=== PATIENT | female | born 1970 | race African-American/Black ===

== ENCOUNTER 2024-11-29 13:12 | Inpatient (IN) | payer MEDICAID, OTHER ==
[2024-11-29] MEDS ORDERED: MAGNESIUM HYDROXIDE 2,400 MG/30 ML CUP PO PRN (14:04)
[2024-11-29] MEDS ORDERED: HALOPERIDOL LACTATE 5 MG/ML 1 ML VIAL IM PRN (14:04)
[2024-11-29] MEDS ORDERED: ACETAMINOPHEN TAB 325 MG TAB PO PRN (14:04)
[2024-11-29] MEDS ORDERED: haloperidoL 5 MG TAB PO PRN (14:04)
[2024-11-29] MEDS ORDERED: LORazepam 2 MG/ML INJ IM PRN (14:10)
[2024-11-29 16:51] LABS: Glucose,Whole Blood 375 mg/dL (70-110)
[2024-11-29] MEDS ORDERED: DEXTROSE 50% SYRINGE 50 ML IVP PRN ×2 (17:02)
[2024-11-29 17:43] LABS: Glucose,Whole Blood 364 mg/dL (70-110)
[2024-11-29] MEDS: INSULIN LISPRO (HumaLOG) 100 UNIT/ML 10 mL VL SQ SCH (17:46)
[2024-11-29 20:02] LABS: Glucose,Whole Blood 362 mg/dL (70-110)
[2024-11-29] MEDS: PREGABALIN 100 MG CAP PO SCH (20:55)
[2024-11-29] MEDS: INSULIN GLARGINE (LANTUS) 100 UNIT/ML SYR SQ SCH (20:55)
[2024-11-29] MEDS: LORazepam 1 MG TAB PO PRN (20:57)
[2024-11-29 21:04] LABS: Glucose,Whole Blood 408 mg/dL (70-110)
[2024-11-29] MEDS: IBUPROFEN 600 MG TAB PO PRN (21:59)
--- NOTE | 2024-11-29 22:43 | XR ---
EXAMINATION TYPE: XR lumbar spine 2 or 3V DATE OF EXAM: 11/29/2024 9:56 PM COMPARISON: None. CLINICAL INDICATION: Female, 54 years old with history of pain after fall, pain TECHNIQUE: 3 view(s) obtained. FINDINGS: There are 5 lumbar-type vertebral bodies. Pedicles are intact. Disc heights are preserved. Vertebral body heights are preserved. IMPRESSION: 1. No acute osseous abnormality lumbar spine [facility], , 11/29/2024 10:41 PM
--- NOTE | 2024-11-29 22:43 | XR ---
EXAMINATION TYPE: XR Hip Complete LT DATE OF EXAM: 11/29/2024 9:56 PM COMPARISON: None. CLINICAL INDICATION: Female, 54 years old with history of fall, pain TECHNIQUE: 2 view(s) obtained. FINDINGS: Left femoral head articulates with the acetabulum. Joint space is preserved. No acute fracture or dis location. Symphysis pubis portion of the sacroiliac joint within the [id number] is normal. Follow up exams can be performed 7-10 days from acute trauma for continued pain IMPRESSION: 1. No acute osseous abnormality left hip [facility], , 11/29/2024 10:40 PM
--- NOTE | 2024-11-29 22:51 | XR ---
EXAMINATION TYPE: XR knee complete RT DATE OF EXAM: 11/29/2024 9:56 PM COMPARISON: None. CLINICAL INDICATION: Female, 54 years old with history of pain after fall, pain TECHNIQUE: 3 view(s) obtained. FINDINGS: No acute fracture or dislocation evident. No joint effusion is evident. Joint spaces are preserved. Follow up exams can be performed 7-10 days from acute trauma for continued pain IMPRESSION: 1. No acute osseous abnormality right knee [facility], , 11/29/2024 10:49 PM
[2024-11-30 07:56] LABS: Glucose,Whole Blood 180 mg/dL (70-110)
[2024-11-30 08:20] LABS: Basophils # (A) 0.04 10*3/uL (0.00-0.10); Basophils % (A) 0.7 %; Eosinophils # (A) 0.17 10*3/uL (0.04-0.35); Eosinophils % (A) 2.9 %; HCT 36.7 % (37.2-46.3); HGB 12.7 g/dL (12.0-15.0); Lymphocytes # (A) 2.94 10*3/uL (0.90-5.00); Lymphocytes % (A) 50.4 %; MCH 28.3 pg (27.0-32.0); MCHC 34.6 g/dL (32.0-37.0); MCV 81.9 fL (80.0-97.0); Mean Platelet Volume 10.8 fL (9.5-12.2); Monocytes # (A) 0.29 10*3/uL (0.20-1.00); Neutrophils # (A) 2.37 10*3/uL (1.80-7.70); Neutrophils % (A) 40.7 %; Platelet Count 306 10*3/uL (140-440); RBC 4.48 10*6/uL (4.10-5.20); RDW 11.9 % (11.5-14.5); WBC 5.83 10*3/uL (4.50-10.00)
[2024-11-30 08:53] LABS: ALT 19 U/L (4-34); AST 34 U/L (14-36); African American GFR (CKD) 70 (>60 ml/min/1.73 sqM); Albumin 3.5 g/dL (3.5-5.0); Alkaline Phosphatase 85 U/L (38-126); Anion Gap 7 mmol/L; Bilirubin,Unconjugated 0.5 mg/dL (0.0-1.1); Blood Urea Nitrogen 14 mg/dL (7-17); Calcium 9.7 mg/dL (8.4-10.2); Carbon Dioxide 27 mmol/L (22-30); Chloride 105 mmol/L (98-107); Glucose 192 mg/dL (74-99); Non-African American GFR(CKD) 61 (>60 ml/min/1.73 sqM); Potassium 3.8 mmol/L (3.5-5.1); Sodium 139 mmol/L (137-145); Total Bilirubin 0.5 mg/dL (0.2-1.3); Total Protein 6.4 g/dL (6.3-8.2)
[2024-11-30] MEDS: PANTOPRAZOLE 40 MG TABLET PO SCH (09:27)
[2024-11-30] MEDS: DULoxetine HCL 20 MG CAPSULE.DR PO SCH (09:28)
[2024-11-30] MEDS: NICOTINE 14MG/24HR PATCH TRANSDERM SCH (09:28)
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
[2024-11-30] MEDS: buPROPion XL 150 MG TAB.ER.24H PO SCH (09:35)
[2024-11-30 12:50] LABS: Glucose,Whole Blood 364 mg/dL (70-110)
[2024-11-30 14:35] VITALS: BMI 26.3
[2024-11-30 15:24] LABS: Chol/HDL Ratio 4.25 Ratio; LDL Cholesterol,Calculated 112.3 mg/dL (0.0-131.0)
[2024-11-30 17:46] LABS: Glucose,Whole Blood 436 mg/dL (70-110)
[2024-11-30] MEDS: QUEtiapine 25 MG TAB PO SCH (20:01)
[2024-11-30 20:11] LABS: Glucose,Whole Blood 503 mg/dL (70-110)
[2024-11-30] MEDS: INSULIN GLARGINE (LANTUS) 100 UNIT/ML SYR SQ SCH (21:17)
[2024-12-01] MEDS: MAG HYDROX/AL HYDROX/SIMETH 355 ML BOTTLE PO PRN (03:04)
[2024-12-01 08:22] LABS: Glucose,Whole Blood 250 mg/dL (70-110)
[2024-12-01] MEDS: PREGABALIN 100 MG CAP PO SCH (09:03)
--- NOTE | 2024-12-01 11:26 | P.PN ---
Progress Note - Text Progress Note Date: 12/01/24 Chief complaint: "I do not want to live" Interval History: Patient was seen wandering the hallways and was directable and agreeable to speak with process description writer in the office. The patient denies any side effects with the newly started medication including the Wellbutrin and Seroquel. She notes that her depression and anxiety are at 8/10 with 10 being worst (previous depression 6/10 anxiety 7/10). She notes that her grief remains 10/10. She continues to have periodic thoughts of . She denies any specific suicidal thoughts, plans or intent. She notes that after taking the Seroquel last night she did not have the ruminating thoughts or voices. She notes that she attended group and spoke of her grief. She notes that she slept well but, feels that her energy is waxing and waning. She notes an improvement in her concentration. She describes her appetite is normal. Mental Status Exam: General Appearance: The patient was normally dressed and groomed. She was using a walker in order to support herself. Behavior: Patient is calmly seated without any agitated behavior. Speech: Patient's speech is fluent and nonpressured. Mood/Affect: Mood is improving dysphoric and grieving, affect is congruent and constricted. Suicidality/Homicidality: Patient denies having any homicidal ideation intent or plan. The patient was voicing thoughts of . Perceptions: Patient denies any visual hallucinations and denies any auditory hallucinations Though content/process: There is no evidence of any delusional thought content and thought process is linear and goal-directed. Memory and concentration: AOX3, grossly intact for the purposes of this session Judgment and insight: Improving mildly Diagnoses: Grief Major depressive disorder recurrent moderate Generalized anxiety disorder History of PTSD Borderline personality traits Assessment: It appears that there is no side effects to the newly started medications in fact the patient slept well. However, she is still voicing thoughts of and her depression as well as her anxiety has increased. It warrants further hospitalization to ensure the medications are more effective. Additionally the patient would benefit from grief counseling upon discharge. PLAN: -Patient is admitted under involuntary status to MHU for stabilization of psychiatric symptoms and safety. Patient has signed adult voluntary form and medication consent and is placed in patient's chart. -Medications : Start Wellbutrin XL 150 mg take 1 capsule by mouth once daily for anhedonia, energy, depression Seroquel 25 mg take 1 tablet by mouth at bedtime for insomnia/anxiety -Ativan and Haldol PRN for agitation/aggression -Patient was informed of the risks, benefits and side effects of the medication and patient verbally consented to taking the medications. Patient signed med consent form and was placed in chart. -Internal Medicine consult to perform medical evaluation and physical. -NRT -not needed as patient does not smoke -SW on board for discharge planning. Encourage patient to participate in groups to work on coping skills.
[2024-12-01 13:02] LABS: Glucose,Whole Blood 307 mg/dL (70-110)
[2024-12-01 17:38] LABS: Glucose,Whole Blood 445 mg/dL (70-110)
[2024-12-01] MEDS: oxyCODONE-APAP 10-325MG 1 EACH TAB PO PRN (17:43)
[2024-12-01 20:04] LABS: Glucose,Whole Blood 370 mg/dL (70-110)
[2024-12-01] MEDS: INSULIN GLARGINE (LANTUS) 100 UNIT/ML SYR SQ SCH (20:13)
[2024-12-02] MEDS: MELATONIN 3 MG TABLET PO PRN (00:08)
[2024-12-02 08:02] LABS: Glucose,Whole Blood 327 mg/dL (70-110)
--- NOTE | 2024-12-02 11:29 | P.PN ---
Progress Note - Text Progress Note Date: 12/02/24 Chief complaint: Thoughts of hurting herself Interval History: Patient was seen wandering the hallways and was directable and agreeable to speak with parts data writer in the office. The patient notes that she feels reluctant about returning home if she feels that she might harm herself. She notes that it would be better to be discharged on Saturday because she is being with family and her sons remembrance services on Saturday. She does have appointment set up with mental health on Saturday [facility]. She notes that she did not sleep last night but does not know why she does note improvements with her energy. She continues to have a normal appetite. She states that her concentration remains poor. She rates her depression at 8/10 and anxiety 9/10 with 10 being worst. The patient denies any side effects with medication. Mental Status Exam: General Appearance: Patient appears to be stated age is alert, directable, and cooperative. Behavior: Patient looked withdrawn Speech: Patient's speech is fluent and nonpressured. Mood/Affect: Mood was severely depressed and the patient presented with blunted affect Suicidality/Homicidality: The patient notes that she is having thoughts of and thoughts of hurting herself if she is by herself. She denies any homicidal thoughts. Perceptions: Patient denies any visual hallucinations [and denies any auditory hallucinations] Though content/process: [There is no evidence of any delusional thought content and thought process is linear and goal-directed.] Memory and concentration: AOX3, grossly intact for the purposes of this session Judgment and insight: Improving mildly Diagnoses: Grief Major depressive disorder recurrent moderate Generalized anxiety disorder History of PTSD Borderline personality traits Assessment: The patient notes that if she returns home by herself there is a likelihood that she would harm herself. It is currently felt that continued hospitalization is needed at this point to prevent self-harm or worse suicide. It is felt that discharge to family would be a safer plan due to helping her process her grief which is the major precipitant of her thoughts of and depression. Continue hospitalization at this time. PLAN: -Patient is admitted under involuntary status to MHU for stabilization of p sychiatric symptoms and safety. Patient has signed adult voluntary form and medication consent and is placed in patient's chart. -Medications : Continue Wellbutrin XL 150 mg take 1 capsule by mouth once daily for anhedonia, energy, depression Seroquel 25 mg take 1 tablet by mouth at bedtime for insomnia/anxiety -Ativan and Haldol PRN for agitation/aggression -Patient was informed of the risks, benefits and side effects of the medication and patient verbally consented to taking the medications. Patient signed med consent form and was placed in chart. -Internal Medicine consult to perform medical evaluation and physical. -NRT -not needed as patient does not smoke -SW on board for discharge planning. Encourage patient to participate in groups to work on coping skills.
[2024-12-02 12:43] LABS: Glucose,Whole Blood 305 mg/dL (70-110)
[2024-12-02] MEDS: LORazepam 1 MG TAB PO PRN (13:49)
--- NOTE | 2024-12-02 16:25 | XR ---
EXAMINATION TYPE: XR Hip Complete LT DATE OF EXAM: 12/02/2024 3:57 PM COMPARISON: 11/29/2024 CLINICAL INDICATION: Female, 54 years old with history of Pt felt/heard popping and is in pain; PHH, pain TECHNIQUE: XR Hip Complete LT; Frontal and lateral views FINDINGS: No evidence for acute process, joint dislocation or significant soft tissue swelling. Osteo phyte formation of the superior acetabulum of the hip. There is mild joint space narrowing. IMPRESSION: 1. No evidence for acute process. 2. Mild hip osteoarthrosis. [facility], , 12/02/2024 4:22 PM
[2024-12-02 17:58] LABS: Glucose,Whole Blood 257 mg/dL (70-110)
[2024-12-02 20:26] LABS: Glucose,Whole Blood 331 mg/dL (70-110)
[2024-12-02] MEDS: cloNIDine HCL 0.2 MG TAB PO STA (22:45)
[2024-12-03] MEDS ORDERED: DEXTROSE 50% SYRINGE 50 ML IVP PRN ×2 (07:47)
--- NOTE | 2024-12-03 07:52 | P.MDCNMH ---
History of Present Illness H&P Date: 12/02/24 54-year-old female with diabetes Patient presented with depressed mood after the passing of her son Patient currently complains of left hip pain, she is unable to perform her ADLs at home after the passing of her son. Currently her blood sugar is not well-controlled receiving basal insulin and sl iding scale The patient currently denies any medical concerns , denies any fever, chills, cough, sore throat, chest pain , trouble breathing , nausea , vomiting, abd pain , changes in urinary or bowel habits. Patient denies any tobacco smoking and illicit drugs or alcohol review of systems Pertinent positives as noted in HPI. All other systems were reviewed and are negative on exam Constitutional: No acute distress Eyes: Anicteric sclerae, moist conjunctiva, Pupils equal round reactive to light Lungs: Clear to auscultation Clear to percussion Normal respiratory effort, no accessory muscle use Cardiovascular: Heart regular in rate and rhythm, No murmurs, gallops, or rubs No peripheral edema Abdominal: Soft Nontender, no guarding, rebound or rigidity Abdomen moving with respiration Normoactive bowel sounds Extremities: No clubbing Pedal pulses intact and symmetrical Radial pulses intact and symmetrical No calf tenderness Psychiatric: Alert and oriented to person, place and time Neuro Muscles Strength 5/5 in bilateral upper extremities, 4 out of 5 in bilateral lower extremities with limitations due to pain, no point tenderness over the spine Sensation to light touch grossly present throughout, peripheral neuropathy which is chronic Past Medical History Past Medical History: Diabetes Mellitus, Hypertension History of Any Multi-Drug Resistant Organisms: None Reported Past Surgical History: Breast Surgery, Section Past Anesthesia/Blood Transfusion Reactions: No Reported Reaction Smoking Status: Never smoker Medications and Allergies Home Medications Medication Instructions Recorded Confirmed Type Cholecalciferol (Vitamin D3) 1,250 mcg PO WEEKLY 11/30/24 11/30/24 History [Vitamin D3 (1250 Mcg = 50,000 Iu)] DULoxetine HCL [Cymbalta] 60 mg PO BID 11/30/24 11/30/24 History Dulaglutide [Trulicity] 0.75 mg SQ WEEKLY 11/30/24 11/30/24 History INSULIN LISPRO (HumaLOG) [humaLOG] 0 units SQ ACHS 11/30/24 11/30/24 History Ibuprofen [Motrin] 800 mg PO BID PRN 11/30/24 11/30/24 History Insulin Glargine (Lantus) [Lantus See Protocol SQ HS 11/30/24 11/30/24 History Vial] Omeprazole [PriLOSEC] 20 mg PO DAILY 11/30/24 11/30/24 History Pregabalin 300 mg PO BID 11/30/24 11/30/24 History oxyCODONE HCL/ACETAMINOPHEN 1 tab PO TID 11/30/24 11/30/24 History [Percocet 10-325 mg] Allergies Allergy/AdvReac Type Severity Reaction Status Date / Time cefazolin Allergy Itching Verified 11/30/24 10:23 shellfish derived [Shellfish] Allergy Unknown Verified 11/30/24 10:23 Physical Exam Vitals: Vital Signs Temp Pulse Resp BP Pulse Ox 12/02/24 22:00 184/108 12/02/24 20:30 97.4 F L 105 H 18 162/82 99 12/02/24 09:57 97.6 F 101 H 18 109/50 98 Cranial Nerve Examination - Cranial Nerves Cranial Nerve II- Optic: Intact Cranial Nerve III- Oculomotor: Intact Cranial Nerve IV- Trochlear: Intact Cranial Nerve V- Trigeminal: Intact Cranial Nerve - Abducens: Intact Cranial Nerve VII- Facial: Intact Cranial Nerve VIII- Auditory: Intact Cranial Nerve IX- Glossopharyngeal: Intact Cranial Nerve X- Vagus: Intact Cranial Nerve XI- Accessory: Intact Cranial Nerve XII- Hypoglossal: Intact Results CBC & Chem 7: 11/30/24 07:49 11/30/24 07:49 Labs: Abnormal Lab Results - Last 24 Hours (Table) 12/02/24 12/02/24 12/02/24 Range/Units 08:00 12:41 17:51 POC Glucose (mg/dL) 327 H 305 H 257 H (70-110) mg/dL 12/02/24 Range/Units 20:24 POC Glucose (mg/dL) 331 H (70-110) mg/dL Assessment and Plan Assessment: Diabetes mellitus uncontrolled with hyperglycemia Check A1c Continue with Levemir 40 units nightly Continue with insulin sliding scale Add preprandial lispro 8 units 3 times a day Continue to monitor blood sugar and make adjustments as needed Left hip pain X-ray showed left hip osteoarthritis no acute fractures Continue with pain control Fall precautions Thank you for this consultation
[2024-12-03 07:57] LABS: Glucose,Whole Blood 340 mg/dL (70-110)
[2024-12-03 12:53] LABS: Glucose,Whole Blood 218 mg/dL (70-110)
[2024-12-03] MEDS: INSULIN LISPRO (HumaLOG) 100 UNIT/ML 10 mL VL SQ SCH (12:54)
--- NOTE | 2024-12-03 12:56 | P.PN ---
Progress Note - Text Progress Note Date: 12/03/24 Chief complaint: Thoughts of Interval History: Patient was seen wandering the hallways and was directable and agreeable to speak with marketing copywriter in the office. The patient notes that her suicidal thoughts have subsided. She notes that she has no homicidal thoughts and we discussed the safety plan of 911 and 988 again. She notes that her significant other will be taking care of her when she goes home. She notes that her son will be peaking in on occasions. She reports her depression and anxiety 8/10 with 10 being worst. She notes that her grief remains 10/10. She feels that her sleep is "okay" and notes that she gets 6 hours. She notes that her energy is increasing and describes it as "fair". She notes that her appetite and concentration are fair. She is looking to be discharged tomorrow morning so she can make the remember and service. Mental Status Exam: General Appearance: Patient appears to be stated age is alert, directable, and cooperative. Behavior: Patient is calmly seated without any agitated behavior. Speech: Patient's speech is fluent and nonpressured. Mood/Affect: Mood is improving mildly, affect is congruent and constricted. Suicidality/Homicidality: Patient denies having any suicidal or homicidal ideation intent or plan. Perceptions: Patient denies any visual hallucinations and denies any auditory hallucinations Though content/process: There is no evidence of any delusional thought content and thought process is linear and goal-directed. Memory and concentration: AOX3, grossly intact for the purposes of this session Judgment and insight: Improving mildly Diagnoses: Grief Major depressive disorder recurrent moderate Generalized anxiety disorder History of PTSD Borderline personality traits Assessment: The patient appears to be stabilizing and will be ready for discharge tomorrow morning. PLAN: -Patient is admitted under involuntary status to [facility] for stabilization of psychiatric symptoms and safety. Patient has signed adult voluntary form and medication consent and is placed in patient's chart. -Medications : Continue Wellbutrin XL 150 mg take 1 capsule by mouth once daily for anhedonia, energy, depression Seroquel 25 mg take 1 tablet by mouth at bedtime for insomnia/anxiety -Ativan and Haldol PRN for agitation/aggression -Patient was informed of the risks, benefits and side effects of the medication and patient verbally consented to taking the medications. Patient signed med consent form and was placed in chart. -Internal Medicine consult to perform medical evaluation and physical. -NRT -not needed as patient does not smoke -SW on board for discharge planning. Encourage patient to participate in groups to work on coping skills.
[2024-12-03 18:02] LABS: Glucose,Whole Blood 254 mg/dL (70-110)
[2024-12-03 20:26] LABS: Glucose,Whole Blood 290 mg/dL (70-110)
[2024-12-04] MEDS: IBUPROFEN 400 MG TAB PO STA (02:06)
--- NOTE | 2024-12-04 07:21 | P.DS ---
Providers Date of admission: 11/29/24 16:33 Admission HPI: Admission note was completed by Dr. Ni "Patient presented to the hospital due to inability to thrive due to the recent passing of her son 3 weeks ago. Patient notes that she found her son in the hallway suspected asthma attack. Since then the patient has not been doing her ADLs, feeding herself and spends most of her time in bed. She notes she has "a lack of will to live". She denies any suicidal thoughts with any plans or intent. She notes that she spends most of the day crying. She notes no relief in any of her symptoms of grief since this has happened and rates it 10/10. She notes that she does have a history of depression since she was a child. And averages her depression 6/10 with 10 being worse over the last 2 weeks. She notes that her anxiety is roughly 7/10 with 10 being worse over the last 2 weeks. She notes that she is only getting 4 to 5 hours of sleep at night. She feels fatigued and rundown. She notes that she has no interest in eating. She is struggling with concentration in the past problems with focus. She feels hopeless. She notes that she has feelings of guilt. She denies any homicidal ideations or access to guns. " Hospital course: Upon admission to the unit patient was directable and agreeable to commence treatment and signed adult voluntary form. Patient got along well with other patients on the unit and followed unit protocol. Patient was compliant with the medications and denied any side effects throughout hospital course. Patient was started on Seroquel 25 mg nightly for sleep, Wellbutrin XL 150 mg once daily for depression. Patient spoke of her stressors and engaged in therapy both group and individual. Patient was also seen by medical team for history and physical exam. The patient was restarted on her insulin as well as her Cymbalta. Throughout the course of the hospitalization patient gradually improved with regards to mood, anxiety, sleep and the patient returned to a improved state on admission. Became more future oriented with improved insight and judgment. On the day of discharge patient denied any suicidal or homicidal ideations intent or plan denied any auditory or visual hallucinations. Patient endorsed wanting to live for their health and family. The patient denied any access to guns or weapons. Patient denied any paranoia and did not endorse any delusions. Patient does not have a significant history of substance abuse and was counseled on abstaining from all substances including alcohol and marijuana. Patient was also counseled on the medications and need for regular compliance and was encouraged to follow-up with their outpatient appointment for mental health and also for primary care. Prior to discharge a family meeting will be arranged by clinical social work aide to answer any questions and ensure safety upon discharge incuding making sure that guns/weapons are either removed from the home or locked away. The patient is being discharged today to her family for the remembering service of her son who recently 3 weeks ago. She has follow-up appointments with [facility] and will have family around her as well as her significant other while at home. Patient denies any suicidal or homicidal ideations. She notes that her depression is still severe as well as her anxiety. She notes that her grief is 10/10 with 10 being worse. She notes no problems with sleeping or concentration. She describes her appetite and energy is fair. She was able to voice a safety plan including 911 and 988. Mental status exam: General Appearance: Patient appears to be her stated age is alert, pleasant, and cooperative. Patient is in no acute distress and has improved hygiene and grooming Behavior: Patient is calmly seated without any agitated behavior. Speech: Patient's speech is fluent and nonpressured. Mood/Affect: Patient reports their mood is "better good", affect is congruent and euthymic. Suicidality/Homicidality: Patient denies having any suicidal or homicidal ideation intent or plan. Perceptions: Patient denies any auditory or visual hallucinations. Though content/process: There is no evidence of any delusional thought content and thought process is linear and goal-directed. More future oriented Memory and concentration: AOX3, grossly intact for the purposes of this session. Can spell "WORLD" backwards correctly. Judgment and insight: Fair/Fair Diagnoses: Grief Major depressive disorder recurrent moderate Generalized anxiety disorder History of PTSD Borderline personality traits Plan: -Continue with discharge today as patient has improved and stabilized psychiatrically and is not currently an imminent threat to themself and/or ot hers. -Continue medications: Short-term Ativan 0.5 mg take 1 tablet by mouth twice daily as needed for anxiety Continue Wellbutrin XL 150 mg take 1 capsule by mouth once daily for anhedonia, energy, depression Seroquel 25 mg take 1 tablet by mouth at bedtime for insomnia/anxiety -Patient was counseled on the need for medication compliance and appropriate follow-up at mental health and also primary care for medical issues. Patient verbalized understanding and agreed. -Social work to help coordinate patients discharge today arrange for and conduct family meeting to ensure safety upon discharge and answer any questions/concerns. also to ensure safe home environment that guns/weapons are either removed from the home or locked away. Social work also to arrange for patients follow up appointments with [facility] for psychiatric care along with follow up with primary care provider. -Patient counseled on abstaining from recreational drugs and marijuana and alcohol. Was informed/educated on the adverse effects on their physical and mental health. Patient verbally agreed and understood. -Patient was instructed to return to the hospital or seek immediate medical care if their psychiatric or medical symptoms do worsen or reoccur. Expected date of discharge: 12/04/24 Attending physician: Ky Baires MD Consults: 11/29/24 14:04 Consult Physician Routine Consulting Provider: [facility] Consult Reason/Comments: H&P Do you want consulting provider notified?: Yes Primary care physician: Stated None - Discharge Diagnosis(es) (1) DAVID (generalized anxiety disorder) Current Visit: Yes Status: Chronic Priority: Medium (2) Grief at loss of child Current Visit: Yes Status: Acute Priority: Medium (3) Major depression, recurrent Current Visit: Yes Status: Chronic Priority: Medium Patient Condition at Discharge: Fair Plan - Discharge Summary Discharge Rx Participant: No New Discharge Prescriptions: New INSULIN LISPRO (HumaLOG) [HumaLOG] 8 unit SQ AC-TID 30 Days each Insulin Glargine (Lantus) [Lantus Vial] 40 unit SQ HS 30 Days each buPROPion XL [Wellbutrin XL] 150 mg PO DAILY 30 Days #30 tab LORazepam [Ativan] 1 mg PO TID PRN 3 Days #9 tab PRN Reason: Anxiety DULoxetine HCL [Cymbalta] 20 mg PO DAILY 30 Days #30 cap Melatonin 3 mg PO HS PRN tab PRN Reason: Insomnia QUEtiapine [SEROquel] 25 mg PO HS 30 Days #30 tab Continue oxyCODONE HCL/ACETAMINOPHEN [Percocet 10-325 mg] 1 tab PO TID Cholecalciferol (Vitamin D3) [Vitamin D3 (1250 Mcg = 50,000 Iu)] 1,250 mcg PO WEEKLY Dulaglutide [Trulicity] 0.75 mg SQ WEEKLY Pregabalin 300 mg PO BID Omeprazole [PriLOSEC] 20 mg PO DAILY 30 Days #30 cap Discontinued INSULIN LISPRO (HumaLOG) [humaLOG] 0 units SQ ACHS DULoxetine HCL [Cymbalta] 60 mg PO BID Ibuprofen [Motrin] 800 mg PO BID PRN PRN Reason: Pain Insulin Glargine (Lantus) [Lantus Vial] See Protocol SQ HS Discharge Medication List Cholecalciferol (Vitamin D3) [Vitamin D3 (1250 Mcg = 50,000 Iu)] 1,250 mcg PO WEEKLY 11/30/24 [History] Dulaglutide [Trulicity] 0.75 mg SQ WEEKLY 11/30/24 [History] Pregabalin 300 mg PO BID 11/30/24 [History] oxyCODONE HCL/ACETAMINOPHEN [Percocet 10-325 mg] 1 tab PO TID 11/30/24 [History] DULoxetine HCL [Cymbalta] 20 mg PO DAILY 30 Days #30 cap 12/03/24 [Rx] INSULIN LISPRO (HumaLOG) [HumaLOG] 8 unit SQ AC-TID 30 Days each 12/03/24 [Rx] Insulin Glargine (Lantus) [Lantus Vial] 40 unit SQ HS 30 Days each 12/03/24 [Rx] LORazepam [Ativan] 1 mg PO TID PRN 3 Days #9 tab 12/03/24 [Rx] Melatonin 3 mg PO HS PRN tab 12/03/24 [Rx] Omeprazole [PriLOSEC] 20 mg PO DAILY 30 Days #30 cap 12/03/24 [Rx] QUEtiapine [SEROquel] 25 mg PO HS 30 Days #30 tab 12/03/24 [Rx] buPROPion XL [Wellbutrin XL] 150 mg PO DAILY 30 Days #30 tab 12/03/24 [Rx] Follow up Appointment(s)/Referral(s): WALLY Garcia [Other] - 12/07/24 10:00 am Activity/Diet/Wound Care/Special Instructions: Avoid the use of street drugs and alcohol. Take all medications as prescribed. When you are in need of refills on your medications, please contact your medical provider and/or outpatient psychiatrist/provider to have this done. Please go to your scheduled outpatient appointment for aftercare treatment. If symptoms return or become worse, call the crisis line at and/or go to the nearest emergency room for evaluation. National Suicide Hotline 988 [facility] confidentiality statement: "The information contained in this communication, including attachments, is confidential, may be privileged, and is intended only for the use of the named recipient(s). Unauthorized use, disclosure, forwarding or copying is strictly prohibited and may be unlawful. If you have received this communication in error, please notify me IMMEDIATELY at the phone number or pager listed above. Discharge Disposition: HOME SELF-CARE
[2024-12-04 07:59] LABS: Glucose,Whole Blood 277 mg/dL (70-110)
[2024-12-04 08:47] VITALS: BP 101/65; PULSE 97; RESP 20; TEMP 97.4
== END 2024-12-04 09:39 | disposition home or self-care (01) | DRG 751 ==
LOC: 3MHU 16:33
PROVIDERS: ADMIT Psychiatry & Neurology Psychiatry; ATTEND Psychiatry & Neurology Psychiatry
DX: F33.1 Major depressive disorder, recurrent, moderate (principal); F41.1 Generalized anxiety disorder; F43.10 Post-traumatic stress disorder, unspecified; F60.3 Borderline personality disorder; G47.00 Insomnia, unspecified; I10 Essential (primary) hypertension; M16.12 Unilateral primary osteoarthritis, left hip; E11.65 Type 2 diabetes mellitus with hyperglycemia; F43.81 Prolonged grief disorder; Z79.899 Other long term (current) drug therapy; Z79.85 Long-term (current) use of injectable non-insulin antidiabetic drugs; Z79.4 Long term (current) use of insulin; Z62.810 Personal history of physical and sexual abuse in childhood; Z63.4 Disappearance and death of family member; Z79.891 Long term (current) use of opiate analgesic
CPT/HCPCS: 72100; 73502; 80053; 80061; 82248; 83036; 84439; 84443; 85025